=== PATIENT | female | born 1965 | race Caucasian/White ===

== ENCOUNTER 2017-03-02 07:00 | Day surgery (SDC) | payer OTHER ==
--- NOTE | 2017-02-24 06:59 | EKG ---
[facility] [address] [facility] [place] [address] Signed Normal sinus rhythm Possible Inferior infarct , age undetermined Abnormal ECG No previous ECGs available Confirmed by JIGAR BONILLA MD ([id number]) on 02/24/2017 6:59:19 AM Electronically Signed By: JIGAR BONILLA MD 02/24/17 0659 PATIENT NAME: NASH TRAN Electrocardiogram DATE OF : 63 PHYSICIAN: JIGAR BONILLA MD REPORT #: [id number] REPORT IS CONFIDENTIAL AND NOT TO BE RELEASED WITHOUT AUTHORIZATION
[~2017-03-02] VITALS: Ht 167.6 cm; Wt 122.5 kg
[~2017-03-02 07:00] MED LIST: CALCIUM500 M1 PO; CITALOPRAM HBR20 MG PO; HYDROCHLOROTHIA25 MG PO; IBUPROFEN600 MG PO; LIPITOR20 MG PO; METOPROLOL TAR100 MG PO; OMEPRAZOLE20 M1 PO; VENTOLIN HFA18 GM INH
--- NOTE | 2017-03-05 19:54 | OR ---
[facility] [place] [facility] [address] [place], [place] [address] Signed DATE OF SERVICE: 03/02/2017 PREOPERATIVE DIAGNOSES: Gastroesophageal reflux disease. History of Helicobacter pylori. Epigastric pain. Bloating. Guaiac-positive stool. Probable personal history of colonic polyps. POSTOPERATIVE DIAGNOSES: Mild to moderate diffuse gastritis. Minimal sigmoid diverticulosis. Moderate internal hemorrhoids. PROCEDURES: Esophagogastroduodenoscopy with CLOtest and biopsies of the duodenum and antrum. Colonoscopy without biopsy. ESTIMATED BLOOD LOSS: None. INDICATIONS: Nash is a 51-year-old female who was asked to see me for upper and lower endoscopy mainly because she is having guaiac-positive stool with epigastric pain and bloating. She has a previous history of acid reflux with a Helicobacter pylori. She also has a personal history of colonic polyps in the past. She said her last colonoscopy was over [address] Gomez while he was up in [place], [place]. She thinks she had colonic polyps removed at that time. She said there is no family history of colon cancer or polyps. I met with Nash in the office. I gave her a pamphlet on both upper and lower endoscopy. We discussed the nature of the 2 tests along with the risks including, but not limited to gas bloating, crampy abdominal pain, bleeding, perforation requiring surgery, and missed diagnosis. We also discussed the need for IV conscious sedation. She had expressed understanding and wished to proceed. PROCEDURE NOTE: Nash was taken into our endoscopy suite and placed in a supine semi-recumbent position. She was given IV sedation with propofol per our nurse refractory technician. Nash has significant medical issues along with a daily need for citalopram. Consequently, our routine Versed and fentanyl would not be enough. The posterior oropharynx was anesthetized with Hurricaine spray. A bite b lock was utilized for the case. The adult gastroscope was introduced and advanced all the way out into the third portion of the duodenum under direct visualization of camera without difficulty. The duodenum and pyloric channel were Electronically Signed By: MERARI SAMSON MD 03/05/171953 PATIENT NAME: NASH TRAN OPERATIVE REPORT DATE OF : 63 PHYSICIAN: MERARI SAMSON MD REPORT #: [id number] REPORT IS CONFIDENTIAL AND NOT TO BE RELEASED WITHOUT AUTHORIZATION [facility] [address], [place] [address] Signed unremarkable. We took biopsies from the duodenum for pathologic review. The stomach showed some very mild diffuse erythematous changes, so we took a biopsy of the antrum for CLOtest as well as pathologic review. Upon retroflexion of the scope, we really could not see an obvious hiatal hernia. We saw no gastric or esophageal varices. The scope was withdrawn up to the area of the GE junction, which was compliant without stricture. The Z-line remains intact. There was no Santiago's mucosa, no distal esophagitis. The middle and upper esophagus were unremarkable. After this, the gas was suctioned out and the gastroscope removed. Nash tolerated procedure quite well. Nash was then rotated into the left lateral decubitus position. She was maintained on IV sedation with propofol per our nurse refractory technician. A digital rectal exam was performed and this was unremarkable. The adult colonoscope was introduced and advanced all around into the cecum under direct visualization of camera without difficulty. Her prep was good. The scope was then slowly withdrawn. We saw no pathology in the colon except for a few small diverticula in the sigmoid colon. The rectum was unremarkable. Upon retroflexion of scope, she does have moderate internal hemorrhoid columns. After this, the gas was suctioned out and the colonoscope removed. Nash tolerated procedure quite well. RECOMMENDATIONS: Nash will follow up in my office in 7-14 days to review her results. MD SAW Dimas/Wil /[id number] cc: MD Mona Dimas PA Electronically Signed By: MERARI SAMSON MD 03/05/17 1954 PATIENT NAME: NASH TRAN OPERATIVE REPORT DATE OF : 63 PHYSICIAN: MERARI SAMSON MD REPORT #: [id number] REPORT IS CONFIDENTIAL AND NOT TO BE RELEASED WITHOUT AUTHORIZATION
== END 2017-03-02 10:08 | disposition home or self-care (01) ==
LOC: OPS 07:00 → DS 07:00 → OPS 08:00
PROVIDERS: Colon & Rectal Surgery
PROC: 0DB68ZX Excision of Stomach, Via Natural or Artificial Opening Endoscopic, Diagnostic (ICD-10-PCS; 2017-03-02)
PROC: 0DJD8ZZ Inspection of Lower Intestinal Tract, Via Natural or Artificial Opening Endoscopic (ICD-10-PCS; principal; 2017-03-02 08:00)
PROC: 0DB98ZX Excision of Duodenum, Via Natural or Artificial Opening Endoscopic, Diagnostic (ICD-10-PCS; 2017-03-02 08:00)
DX: K29.50 Unspecified chronic gastritis without bleeding (principal); K64.8 Other hemorrhoids; K57.30 Diverticulosis of large intestine without perforation or abscess without bleeding; I10 Essential (primary) hypertension; K21.9 Gastro-esophageal reflux disease without esophagitis; E78.5 Hyperlipidemia, unspecified; E66.9 Obesity, unspecified; F32.9 Major depressive disorder, single episode, unspecified; D64.9 Anemia, unspecified; F17.210 Nicotine dependence, cigarettes, uncomplicated; Z87.442 Personal history of urinary calculi; Z68.41 Body mass index [BMI] 40.0-44.9, adult; Z86.19 Personal history of other infectious and parasitic diseases; Z98.890 Other specified postprocedural states; Z79.82 Long term (current) use of aspirin; Z79.899 Other long term (current) drug therapy; Z88.5 Allergy status to narcotic agent; Z88.0 Allergy status to penicillin; Z88.2 Allergy status to sulfonamides
CPT/HCPCS: 00740; 36415; 80053; 86677; 93005; 93010; J2704; J7120